=== PATIENT | female | born 1955 | race Caucasian/White ===

== ENCOUNTER 2019-02-25 12:14 | Day surgery (SDC) | payer BC ==
[~2019-02-25 12:14] MED LIST: CEFAZOLIN 2 GM/50 ML (PMX) 50 ML IVPB
[2019-02-25] MEDS ORDERED: LACTATED RINGER'S 1,000 ML IV (13:30)
[2019-02-25] MEDS: CLINDAMYCIN 600 MG/D5W (PMX) 50 ML IVPB (14:00)
[2019-02-25] MEDS ORDERED: NEOMYC/POLYMYX/BACIT 30 GM OINT (14:13)
[2019-02-25] MEDS ORDERED: MIDAZOLAM 1 MG/ML 2 ML INJ ×2 (14:36→15:58)
[2019-02-25] MEDS ORDERED: ETOMIDATE 20 MG INJ (14:36)
[2019-02-25] MEDS ORDERED: PROPOFOL 20 ML (14:36)
[2019-02-25] MEDS ORDERED: FENTAnyl 50 MCG/ML VIAL (14:36)
[2019-02-25] MEDS ORDERED: CEFAZOLIN 1 GM INJ (14:47)
[2019-02-25] MEDS ORDERED: CLINDAMYCIN 600 MG/D5W (PMX) 50 ML IVPB (14:47)
[2019-02-25] MEDS ORDERED: ONDANSETRON 4 MG INJ ×2 (14:49→15:44)
[2019-02-25] MEDS: LIDOCAINE 1% (MPF) 30 ML INJ (14:55)
[2019-02-25] MEDS: ONDANSETRON 4 MG INJ IV (15:52)
[2019-02-25] MEDS: MIDAZOLAM 1 MG/ML 2 ML INJ IV (16:09)
== END 2019-02-25 17:37 | disposition home or self-care (01) ==
LOC: SDS 12:14
DX: M65.821 Other synovitis and tenosynovitis, right upper arm (principal); D48.1 Neoplasm of uncertain behavior of connective and other soft tissue
CPT/HCPCS: 25076; 87070; 87075; 87102; 88307; 88331